=== PATIENT | male | born 1990 | race Native Hawaiian/Other Pacific Islander ===

== ENCOUNTER 2022-08-03 22:07 | Emergency (ER) | payer SELFPAY ==
--- NOTE | 2022-08-03 22:36 | ED_ITS ---
HPI - Eye Problem General: Stated complaint: EYE PAIN Time Seen by Provider: 08/03/22 22:36 History of Present Illness: 31-year-old male patient comes in today with sided facial pain and swelling and redness to the upper eyelid of the left side. Patient reports some nasal congestion starting earlier in the week then started having increased pain and discomfort to the left eye with some surrounding redness today. Patient appears nontoxic. Patient appears in mild pain. Patient denies any chronic medical problems. Patient at this time is incarcerated at the [facility]. Patient takes no routine medicines. Associated symptoms: Reports headache(s); Denies nausea, neck pain or vomiting Review of Systems General: Reports: 10 or more systems reviewed and unremarkable except in HPI and below Eyes: Reports: other (Eyelid redness and swelling); Denies: change in vision ENMT: Reports: nasal congestion Card: Denies: chest pain Resp: Denies: dyspnea GI: Denies: nausea or vomiting : Denies: difficulty urinating Musc: Denies: neck pain or back pain Skin/Breast: Reports: erythema Neuro: Reports: headache(s) Physical Exam Const: COMMON NORMALS: alert HENMT: HEAD & SCALP: other (Mild swelling around the left eye with redness) NOSE: Nasal discharge present purulent Neck/C-Spine: COMMON NORMALS: full ROM Resp: COMMON NORMALS: normal respiratory effort and clear to auscultation bilaterally AUSCULTATION: clear to auscultation bilaterally Cardio: COMMON NORMALS: regular rate and regular rhythm RATE: regular rate RHYTHM: regular rhythm GI: COMMON NORMALS: Normal to inspection, nondistended, normoactive bowel sounds present Extremity: COMMON NORMALS: normal to inspection Neuro: SENSORIUM/ORIENTATION: Yes alert MDM - Eye Problem Medical Decision Making 31-year-old male patient comes in today with complaints of left eye periorbital redness and swelling with sinus pain and pressure. Patient appears nontoxic. Patient appears in no acute distress. Differential diagnosis includes but not limited to preseptal cellulitis, sinusitis, conjunctivitis. Normal conjunctive a is noted. Patient does have redness and swelling around the eye. Patient also has purulent drainage in bilateral naris. Patient has sinus tenderness to the left maxillary sinus. Believe patient probably has a bacterial sinusitis with secondary preseptal cellulitis. We will go ahead and treat with 1 g Rocephin and Bactrim due to patient's residence at one of the [facility]. Patient then will be continued on cefdinir and Bactrim. Recommend follow-up with primary care as needed, return to ED for worsening symptoms. Patient and guard reported understanding. Discharge Plan Discharge Patient Disposition: Home Clinical Impression: Acute bacterial sinusitis, Preseptal cellulitis of left eye Condition: Stable Prescriptions: New cefdinir 300 mg capsule 300 mg PO BID 10 Days Qty: 20 0RF ibuprofen 600 mg tablet 600 mg PO Q6H PRN (Reason: fever or pain) Qty: 60 0RF sulfamethoxazole-trimethoprim 800-160 mg tablet 1 tab PO BID 7 Days Qty: 14 0RF Discharge Orders: Discharge ED (Routine); Ordered 08/03/22 Ordered By: Hunter Hanna Discharge Diet: Usual diet Discharge Activity: Increase activity as tolerated Patient Instructions: Rhinosinusitis (ED) Activity Restrictions/Additional Instructions: Drink plenty of water and fluids. Take antibiotics as directed. Use acetaminophen and ibuprofen for pain. Follow-up with primary care for further instruction. Return to ED for worsening symptoms. Coding Level of Care Code ED Casing In Line Feeder for Javier Hammond
[2022-08-03 22:49] VITALS: BP 128/85; PULSE 68; RESP 16; TEMP 36.8; O2SAT 98; BMI 24.3
[2022-08-03] MEDS: sulfamethoxazole-trimeth DS 160-800 mg Tablet 1 TAB PO (23:06)
[2022-08-03] MEDS: cefTRIAXone 1,000 MG in water for injection-sterile 2.1 ML 2.1 MG IM (23:09)
[2022-08-03] MEDS: neomycin-poly-dex Op oint 3.5 gm 1 APPLIC EYE-LEFT (23:10)
[2022-08-03] MEDS: dexamethasone 10 mg/mL INJ IM (23:10)
--- NOTE | 2022-08-11 13:46 | DCPLANNER ---
TCM called patient due to no primary care physician - no answer at this time.
== END 2022-08-03 23:13 | disposition home or self-care (01) ==
PROVIDERS: Emergency Provider Nurse Practitioner Family
DX: J01.90 Acute sinusitis, unspecified (principal); B96.89 Other specified bacterial agents as the cause of diseases classified elsewhere; L03.213 Periorbital cellulitis
CPT/HCPCS: 96372; 99284; J0696; J1100